=== PATIENT | female | born 1955 | race Caucasian/White ===

== ENCOUNTER 2016-12-31 10:28 | Emergency (ER) | payer BC, OTHER ==
[2016-12-31 10:46] VITALS: PULSE 106; RESP 20; TEMP 98.1; O2SAT 92
--- NOTE | 2016-12-31 10:57 | UCPHY ---
H & P Patient Type: Established Chief Complaint Nursing Narrative: cough last 2 days. Sunday started with "sinus pressure." SOB this am . Time Seen by Provider: 12/31/16 10:45 HPI/ROS: Chief Complaint: Cough HPI: 61-year-old woman presenting with 5 days of cough. It is occasionally productive of yellowish sputum. She has some pain in her upper chest only when she coughs. Is feeling mildly short of breath. Does have a history of seasonal asthma but has not required any bronchodilators for about for 5 years. Also has a history of hypertension but took herself off medications 2 years ago because she states her blood pressure was doing well. Non some subjective fever several days ago but these have since resolved. No chills. No nausea or vomiting. No abdominal pain. ROS: 10 point Review of Systems is negative except as noted in the HPI. PMH: Hypertension, seasonal asthma Social History: No smoking, no alcohol, no recreational drug use Family History: non-contributory Physical Exam: Gen: Awake, Alert, No Distress HEENT: Nose: no rhinorrhea Eyes: PERRLA, EOMI Mouth: Moist mucosa Neck: Supple, no JVD Chest: nontender, mild diffuse expiratory wheeze. She has some focal crackles in the left base Heart: S1, S2 normal, no murmur Abd: Soft, non-tender, no guarding Back: no CVA tenderness, no midline tenderness Ext: no edema, non-tender Skin: no rash Neuro: CN II-XII intact, Sensation grossly intact, Strength 5/5 in bilateral upper and lower extremities - Personal History Current Tetanus/Diphtheria Vaccine: Unsure Current Tetanus Diphtheria and Acellular Pertussis (TDAP): Unsure - Medical/Surgical History Hx Asthma: No Hx Chronic Respiratory Disease: No Hx Diabetes: No Hx Cardiac Disease: Yes Hx Renal Disease: No Hx Cirrhosis: No Hx Alcoholism: No Hx HIV/AIDS: No Hx Splenectomy or Spleen Trauma: No Other PMH: medical- Uncontrolled HTN. Seasonal allergies. - Family History Significant Family History: No pertinent family hx - Social History Smoking Status: Never smoked Constitutional: Initial Vital Signs Temperature (C) 36.7 C 12/31/16 10:41 Heart Rate 106 H 12/31/16 10:41 Respiratory Rate 20 12/31/16 10:41 Blood Pressure 223/123 H 12/31/16 10:41 O2 Sat (%) 92 12/31/16 10:41 O2 Delivery Mode Room Air Allergies/Adverse Reactions: No Known Allergies Allergy (Verified 12/31/16 10:46) Home Medications: Medication Instructions Recorded AZITHROMYCIN [Z-PACK] 250 mg PO DAILY #6 tab 12/31/16 Albuterol [Ventolin Hfa Inhaler] 200 puffs IH Q4 PRN #0 mdi 12/31/16 Amlodipine Besylate [Norvasc] 5 mg PO DAILY #30 tablet 12/31/16 Nasal [place] 12/31/16 Tessalon [place] 12/31/16 Medical Decision Making ED Course/Re-evaluation: Patient presenting with symptoms and clinical findings suggestive of community- acquired pneumonia. Will start her on azithromycin. She also has the mild bronchitis type wheeze for which I will start her on albuterol. Patient has a history of hypertension is quite hypertensive here. Will recheck. She will certainly need to restart her amlodipine. Will need close follow-up in several days for blood pressure recheck. Departure - Departure Disposition: Home, Routine, Self-Care Clinical Impression: Pneumonia, Hypertension Condition: Good Instructions: Hypertension (ED), Community Acquired Pneumonia (ED) Additional Instructions: Follow up with primary care doctor in 3-4 days for blood pressure recheck and recheck of your pneumonia. Do not travel until your symptoms have improved in you have completed her antibiotics. Resume your amlodipine 5 mg daily for high blood pressure. Return Urgent Care emergency department for increasing shortness of breath, chest pain, fevers, chills, or any other concerns. Referrals: NONE *PRIMARY CARE P,. [Primary Care Provider] - As per Instructions Prescriptions: Albuterol [Ventolin Hfa Inhaler] 200 puffs IH Q4 PRN #0 mdi PRN Reason: Wheezing Amlodipine Besylate [Norvasc] 5 mg PO DAILY #30 tablet AZITHROMYCIN [Z-PACK] 250 mg PO DAILY #6 tab - PQRS PQRS Measurement: NA
[2016-12-31] MEDS ORDERED: ALBUTEROL 3 ML DEYVIAL IH ONE (11:15)
[2016-12-31] MEDS ORDERED: ALBUTEROL 3 ML DEYVIAL ONE (11:31)
[2016-12-31 11:57] VITALS: BP 190/110
== END 2016-12-31 12:20 | disposition home or self-care (01) ==
LOC: CED 10:28
DX: J18.9 Pneumonia, unspecified organism (principal); I10 Essential (primary) hypertension; J45.909 Unspecified asthma, uncomplicated
CPT/HCPCS: 99214-PO; G0463-PO

== ENCOUNTER → 2017-01-16 | Outpatient (CLI) | payer OTHER | LOC: FIMAGING 07:54 | DX: Z12.31 Encounter for screening mammogram for malignant neoplasm of breast (principal) | CPT/HCPCS: G0202 ==